=== PATIENT | female | born 1975 | race Caucasian/White ===

== ENCOUNTER 2017-07-11 05:58 | Day surgery (SDC) | payer MEDICAID ==
[2017-07-11 06:41] LABS: ADD MAN DIFF? NO
[2017-07-11 06:46] LABS: WHITE BLOOD COUNT 6.5 10^3/ul (4.8-10.8)
[2017-07-11 06:46] LABS: BASOPHIL # 0.1 10^3/ul (0.0-0.1); BASOPHILS % 0.8 % (0.0-2.0); EOSINOPHILS # 0.1 10^3/ul (0.0-0.5); EOSINOPHILS % 0.9 % (0.0-7.0); HEMATOCRIT 37.8 % (37.0-47.0); HEMOGLOBIN 12.6 g/dl (12.0-16.0); LYMPHOCYTES # 1.9 10^3/ul (0.8-2.9); LYMPHOCYTES % 28.6 % (15.0-51.0); MEAN CORPUSCULAR HEMOGLOBIN 30.2 pg (29.0-33.0); MEAN CORPUSCULAR HGB CONC 33.3 g/dl (32.0-37.0); MEAN CORPUSCULAR VOLUME 90.6 fl (82.0-101.0); MEAN PLATELET VOLUME 9.7 fl (7.4-10.4); MONOCYTE # 0.3 10^3/ul (0.3-0.9); MONOCYTES % 4.8 % (0.0-11.0); NEUTROPHIL # 4.2 10^3/ul (1.6-7.5); NEUTROPHILS % 64.7 % (39.0-77.0); PLATELET COUNT 284 10^3/UL (140-415); RED BLOOD COUNT 4.17 10^6/ul (4.20-5.40); RED CELL DISTRIBUTION WIDTH 13.2 % (11.5-14.5)
[2017-07-11 07:03] LABS: INR 0.91; PROTIME 12.3 Sec (11.9-14.9)
[2017-07-11 07:04] LABS: ANION GAP 14 (8-16); CARBON DIOXIDE 25 mmol/L (21-31); CHLORIDE 109 mmol/L (97-110); GLUCOSE 124 mg/dl (70-220); PARTIAL THROMBOPLASTIN TIME 27.4 Sec (25.0-35.0)
[2017-07-11 07:08] LABS: BLOOD UREA NITROGEN 20 mg/dl (7-20); CALCIUM 9.6 mg/dl (8.4-10.2); CREATININE 0.87 mg/dl (0.44-1.00); SODIUM 144 mmol/L (135-144)
[2017-07-11] MEDS ORDERED: DEXAMETHASONE 4 MG/ML 1 ML INJ (07:28)
[2017-07-11] MEDS ORDERED: GLYCOPYRROLATE 0.4 MG INJ (07:28)
[2017-07-11] MEDS ORDERED: FENTAnyl 50 MCG/ML VIAL (07:28)
[2017-07-11] MEDS ORDERED: CEFAZOLIN 1 GM INJ (07:28)
[2017-07-11] MEDS ORDERED: MIDAZOLAM 1 MG/ML 2 ML INJ (07:28)
[2017-07-11] MEDS ORDERED: ONDANSETRON 4 MG INJ (07:28)
[2017-07-11] MEDS ORDERED: NEOSTIGMINE 3 MG/3 ML SYRINGE (07:28)
[2017-07-11] MEDS ORDERED: ROCURONIUM 50 MG INJ (07:28)
[2017-07-11] MEDS ORDERED: PROPOFOL 20 ML (07:28)
[2017-07-11] MEDS ORDERED: SUGAMMADEX SODIUM 200 MG/2 ML VIAL IV (08:17)
[2017-07-11] MEDS ORDERED: ALBUTEROL 0.083% (NEB) 2.5 MG/3 ML AMP HHN (08:30)
[2017-07-11] MEDS ORDERED: MIDAZOLAM 1 MG/ML 2 ML INJ IV (08:30)
[2017-07-11] MEDS ORDERED: ONDANSETRON 4 MG INJ IV (08:30)
[2017-07-11] MEDS ORDERED: MEPERIDINE 25 MG INJ IV (08:30)
[2017-07-11] MEDS ORDERED: TRIMETHOBENZAMIDE 100 MG/ML VIAL IM (08:30)
[2017-07-11] MEDS ORDERED: OXYCODONE/ACETAMINOPHEN (5/325) TAB PO ×2 (08:30)
[2017-07-11] MEDS ORDERED: LABETALOL HCL 20MG INJ IV (08:30)
[2017-07-11] MEDS ORDERED: FENTAnyl 50 MCG/ML VIAL IV ×3 (08:30)
[2017-07-11] MEDS ORDERED: IPRATROPIUM (NEB) 0.5 MG/2.5 ML AMP HHN (08:30)
[2017-07-11] MEDS ORDERED: EPHEDrine SULFATE 50 MG/5 ML SYG IV (08:30)
[2017-07-11] MEDS ORDERED: hydrALAzine 20 MG INJ IV (08:30)
[2017-07-11] MEDS ORDERED: HYDROmorphONE (0.2 MG/ML) 10ML SYG IV ×3 (08:30)
[2017-07-11] MEDS ORDERED: DIPHENHYDRAMINE 50 MG INJ IV (08:30)
== END 2017-07-11 10:08 | disposition home or self-care (01) ==
LOC: SDS 05:58
DX: Z30.2 Encounter for sterilization (principal)
CPT/HCPCS: 58565; 80048; 85025; 85610; 85730; 93005